=== PATIENT | male | born 1965 | race Caucasian/White ===

== ENCOUNTER 2017-08-22 02:08 | Observation (INO) | payer BC ==
[2017-08-22 05:26] LABS: ADD MAN DIFF? NO
[2017-08-22 05:35] LABS: BASOPHIL # 0.1 10^3/ul (0.0-0.1); BASOPHILS % 0.5 % (0.0-2.0); EOSINOPHILS # 0.1 10^3/ul (0.0-0.5); EOSINOPHILS % 1.1 % (0.0-7.0); HEMATOCRIT 43.1 % (42.0-52.0); HEMOGLOBIN 14.9 g/dl (14.0-18.0); LYMPHOCYTES # 4.8 10^3/ul (0.8-2.9); LYMPHOCYTES % 43.3 % (15.0-51.0); MEAN CORPUSCULAR HEMOGLOBIN 30.4 pg (29.0-33.0); MEAN CORPUSCULAR HGB CONC 34.6 g/dl (32.0-37.0); MEAN PLATELET VOLUME 9.9 fl (7.4-10.4); MONOCYTE # 0.7 10^3/ul (0.3-0.9); MONOCYTES % 6.1 % (0.0-11.0); NEUTROPHIL # 5.4 10^3/ul (1.6-7.5); NEUTROPHILS % 48.7 % (39.0-77.0); PLATELET COUNT 276 10^3/UL (140-415); RED CELL DISTRIBUTION WIDTH 13.9 % (11.5-14.5)
[2017-08-22 06:12] LABS: ALANINE AMINOTRANSFERASE 48 IU/L (13-69); ALBUMIN 4.8 g/dl (3.3-4.9); ALBUMIN/GLOBULIN RATIO 1.23; ALKALINE PHOSPHATASE 109 IU/L (42-121); ANION GAP 20 (8-16); ASPARTATE AMINO TRANSFERASE 31 IU/L (15-46); BILIRUBIN,INDIRECT 0.5 mg/dl (0-1.1); BILIRUBIN,TOTAL 0.5 mg/dl (0.2-1.3); BLOOD UREA NITROGEN 20 mg/dl (7-20); CALCIUM 9.7 mg/dl (8.4-10.2); CARBON DIOXIDE 23 mmol/L (21-31); CHLORIDE 105 mmol/L (97-110); CREATININE 1.06 mg/dl (0.61-1.24); GLUCOSE 112 mg/dl (70-220); POTASSIUM 4.5 mmol/L (3.5-5.1); SODIUM 143 mmol/L (135-144); TOTAL PROTEIN 8.7 g/dl (6.1-8.1)
[2017-08-22 06:23] LABS: B-TYPE NATRIURETIC PEPTIDE 28 PG/ML (0-125)
[2017-08-22 06:25] LABS: TROPONIN-I < 0.012 ng/ml (0.00-0.12)
[2017-08-22] MEDS: ASPIRIN 81 MG TAB PO (06:29)
[2017-08-22] MEDS: NITROGLYCERIN 2% 1 GM OINT PKT TD (06:30)
[2017-08-22] MEDS: NITROGLYCERIN (SL) 0.4 MG TAB SL (06:30)
[2017-08-22] MEDS ORDERED: ONDANSETRON 4 MG INJ IV ×2 (06:30→20:00)
[2017-08-22 06:39] LABS: CREATINE KINASE 135 IU/L (23-200)
[2017-08-22 06:51] LABS: CK INDEX 0.9
[2017-08-22 06:54] LABS: TROPONIN-I < 0.012 ng/ml (0.00-0.12)
[2017-08-22] MEDS: ACETAMINOPHEN 325 MG TAB PO ×2 (12:46→22:32)
[2017-08-22 16:12] LABS: CREATINE KINASE 101 IU/L (23-200)
[2017-08-22 16:24] LABS: CK INDEX 0.7
[2017-08-22 16:29] LABS: CK-MB 0.69 ng/ml (0.0-2.4); TROPONIN-I < 0.012 ng/ml (0.00-0.12)
[2017-08-22 20:42] LABS: CHOLESTEROL 309 mg/dl (100-200)
[2017-08-22 20:42] LABS: CHOL/HDL RATIO 8.5 RATIO; HDL CHOLESTEROL 36 mg/dl (28-71); LDL CHOLESTEROL,CALCULATED 175 mg/dl; TRIGLYCERIDES 489 mg/dl (0-149)
[2017-08-22 21:37] LABS: CREATINE KINASE 100 IU/L (23-200)
[2017-08-22 21:47] LABS: CK INDEX 0.5; CK-MB 0.54 ng/ml (0.0-2.4)
[2017-08-22 21:49] LABS: TROPONIN-I < 0.012 ng/ml (0.00-0.12)
[2017-08-23 01:28] LABS: CREATINE KINASE 93 IU/L (23-200)
[2017-08-23 01:41] LABS: CK INDEX 0.5; TROPONIN-I < 0.012 ng/ml (0.00-0.12)
[2017-08-23 06:46] LABS: ADD MAN DIFF? NO
[2017-08-23 06:49] LABS: WHITE BLOOD COUNT 9.2 10^3/ul (4.8-10.8)
[2017-08-23 06:49] LABS: BASOPHILS % 0.4 % (0.0-2.0); EOSINOPHILS # 0.1 10^3/ul (0.0-0.5); EOSINOPHILS % 1.5 % (0.0-7.0); HEMATOCRIT 42.3 % (42.0-52.0); HEMOGLOBIN 14.1 g/dl (14.0-18.0); LYMPHOCYTES % 43.6 % (15.0-51.0); MEAN CORPUSCULAR HEMOGLOBIN 30.1 pg (29.0-33.0); MEAN CORPUSCULAR HGB CONC 33.3 g/dl (32.0-37.0); MEAN CORPUSCULAR VOLUME 90.2 fl (82.0-101.0); MEAN PLATELET VOLUME 10.2 fl (7.4-10.4); MONOCYTE # 0.7 10^3/ul (0.3-0.9); MONOCYTES % 7.3 % (0.0-11.0); NEUTROPHIL # 4.3 10^3/ul (1.6-7.5); PLATELET COUNT 266 10^3/UL (140-415); RED BLOOD COUNT 4.69 10^6/ul (4.70-6.10); RED CELL DISTRIBUTION WIDTH 13.8 % (11.5-14.5)
[2017-08-23 07:29] LABS: ANION GAP 18 (8-16); BLOOD UREA NITROGEN 22 mg/dl (7-20); CALCIUM 9.4 mg/dl (8.4-10.2); CARBON DIOXIDE 26 mmol/L (21-31); CHLORIDE 104 mmol/L (97-110); CREATININE 1.09 mg/dl (0.61-1.24); GLUCOSE 104 mg/dl (70-220); POTASSIUM 4.7 mmol/L (3.5-5.1); SODIUM 143 mmol/L (135-144)
[2017-08-23 07:36] LABS: HEMOGLOBIN A1C 5.7 % (0-5.9)
[2017-08-23 07:41] LABS: TROPONIN-I < 0.012 ng/ml (0.00-0.12)
[2017-08-23] MEDS: METOPROLOL 25 MG TAB PO (09:00)
[2017-08-23] MEDS: ASPIRIN 81 MG TAB GTB (09:00)
[2017-08-23] MEDS: REGADENOSON 0.4 MG/5 ML SYG (11:45)
[2017-08-23] MEDS ORDERED: ATORVASTATIN 40 MG TAB PO (21:00)
== END 2017-08-23 18:40 | disposition home or self-care (01) ==
LOC: E/R 02:08 → MS3 06:29
DX: R07.9 Chest pain, unspecified (principal); I10 Essential (primary) hypertension; E78.5 Hyperlipidemia, unspecified; D72.829 Elevated white blood cell count, unspecified
CPT/HCPCS: 36415; 71045; 76700; 78452; 80048; 80053; 80061; 82550; 82553; 83036; 83880; 84443; 84484; 85025; 93005; 93017; 93306; 99285-25

== ENCOUNTER 2017-09-26 20:59 | Emergency (ER) | payer BC ==
[2017-09-26] MEDS: ONDANSETRON (ODT) 4 MG TAB ODT (22:08)
[2017-09-26] MEDS: HYDROmorphONE 0.5 MG/0.5 ML SYG IM (22:09)
== END 2017-09-26 23:31 | disposition home or self-care (01) ==
LOC: FTE 20:59
DX: S39.92XA Unspecified injury of lower back, initial encounter (principal); I10 Essential (primary) hypertension; W01.0XXA Fall on same level from slipping, tripping and stumbling without subsequent striking against object, initial encounter; Y92.9 Unspecified place or not applicable; Z87.891 Personal history of nicotine dependence; Z79.82 Long term (current) use of aspirin
CPT/HCPCS: 72131; 96372; 99285-25